=== PATIENT | female | born 1955 | race Caucasian/White ===

== ENCOUNTER 2025-02-25 09:37 | Outpatient (CLI) | payer OTHER | END 2025-02-25 09:38 | disposition home or self-care (01) | LOC: CSHSLEEP 09:37 | PROVIDERS: ATTEND Family Medicine | DX: G47.33 Obstructive sleep apnea (adult) (pediatric) (principal); R53.83 Other fatigue; E11.9 Type 2 diabetes mellitus without complications; E66.9 Obesity, unspecified; Z68.36 Body mass index [BMI] 36.0-36.9, adult; R06.83 Snoring | CPT/HCPCS: 95810 ==